=== PATIENT | female | born 1945 | race Caucasian/White ===

== ENCOUNTER 2017-02-19 01:46 | Day surgery (SDCO) | payer MEDICARE ==
[~2017-02-19 01:46] MED LIST: BENTYL20 MG PO; CARAFATE1 GM PO; COZAAR 100MG T100 MG PO; CRESTOR5 MG PO; DILTIAZEM 24HR240 M1 PO; LO-DOSE ASPIRIN81 MG PO; PREVACID30 MG PO; PROZAC40 MG PO; WELLBUTRIN SR150 MG PO
[2017-02-19 02:01] LABS: BASOPHIL 0.2 % (0-2); EOSINOPHIL 1.5 % (0-7); HCT 36.6 % (37.0-47.0); HGB 12.5 g/dl (12.5-16.0); LYMPHOCYTE 31.6 % (15-48); MCH 28.1 pg (25.0-31.0); MCHC 34.2 g/dL (32.0-36.0); MCV 82.2 fL (78.0-100.0); MONOCYTE 8.8 % (0-12); MPV 8.8 fL (6.0-9.5); NEUTROPHIL 57.9 % (41-80); PLT 373 K/uL (150-400); RBC 4.45 M/uL (4.20-5.40); RDW 14.2 % (11.5-14.0); WBC 8.4 K/uL (4.0-10.5)
[2017-02-19 02:11] LABS: INR 0.94 (0.9-1.2); PROTHROMBIN TIME 12.2 SECONDS (11.7-14.0); PTT 26.7 SECONDS (23.2-31.4)
[2017-02-19 02:21] LABS: CKMB 2.54 ng/mL (0.97-4.94); MYOGLOBIN 42 ng/mL (26-65); TROPONIN T < 0.010 ng/mL
[2017-02-19 02:22] LABS: ALBUMIN 4.3 g/dL (3.4-4.8); BILIRUBIN - TOTAL 0.2 mg/dL (0.1-1.0); CREATININE 1.1 mg/dL (0.5-1.0); GLOBULIN (CALCULATION) 3.5 g/dL (2.2-4.2); MAGNESIUM 1.76 mg/dL (1.40-2.10); POTASSIUM 3.7 mmol/L (3.5-5.1); TOTAL PROTEIN 7.8 g/dL (6.4-8.3)
[2017-02-19 02:23] LABS: PRO-BNP 270 pg/mL (0-125)
[2017-02-19 08:44] LABS: CKMB 2.44 ng/mL (0.97-4.94); TROPONIN T < 0.010 ng/mL
[2017-02-19] MEDS ORDERED: PRILOSEC20 MG PO (14:32)
[2017-02-19] MEDS ORDERED: HCTZ25 MG PO (14:34)
[2017-02-19] MEDS ORDERED: FLEXERIL10 MG PO (14:34)
[2017-02-19] MEDS ORDERED: NORCO 5-325 TA1 EACH PO (14:34)
[2017-02-19] MEDS ORDERED: HYDRALAZINE25 MG PO (14:34)
[2017-02-19] MEDS ORDERED: WELCHOL625 MG PO (14:35)
[2017-02-19] MEDS ORDERED: PROZAC40 MG PO (14:35)
== END 2017-02-19 14:00 | disposition home or self-care (01) ==
LOC: FER 01:46 → FICU 05:50
PROVIDERS: Emergency Medicine; Hospitalist; ADMIT Internal Medicine
DX: R07.89 Other chest pain (principal); I12.0 Hypertensive chronic kidney disease with stage 5 chronic kidney disease or end stage renal disease; N18.6 End stage renal disease; K21.9 Gastro-esophageal reflux disease without esophagitis; G47.33 Obstructive sleep apnea (adult) (pediatric); M19.90 Unspecified osteoarthritis, unspecified site; F41.9 Anxiety disorder, unspecified; F32.9 Major depressive disorder, single episode, unspecified; E78.5 Hyperlipidemia, unspecified; G89.29 Other chronic pain; Z90.710 Acquired absence of both cervix and uterus; Z90.49 Acquired absence of other specified parts of digestive tract; Z96.652 Presence of left artificial knee joint; Z98.49 Cataract extraction status, unspecified eye; Z82.49 Family history of ischemic heart disease and other diseases of the circulatory system; Z80.9 Family history of malignant neoplasm, unspecified; Z79.899 Other long term (current) drug therapy
CPT/HCPCS: 36415; 71010; 71275; 80053; 80061; 82550; 82553; 83735; 83874; 83880; 84484; 85025; 85379; 85610; 85730; 93005; C9113; G0378; J2270; Q9967

== ENCOUNTER 2021-05-31 09:03 | Emergency (ER) | payer MEDICARE ==
[~2021-05-31 09:03] MED LIST changes: +ASPIRIN EC81 MG PO; +CIPRO500 MG PO; +CLARITIN10 MG PO; +COLESTID 1GM TAB1 GM PO; +CRANBERRY200 MG PO; +EFFEXOR-XR 75 M75 MG PO; +ESTRACE42.5 GM VG; +ESTRADIOL42.5 GM VG; +FLEXERIL10 MG PO; +HCTZ25 MG PO; +HYDRALAZINE25 MG PO; +ISOSORBIDE MONO60 MG PO; +LOVAZA1 GM PO; +NAPROXEN500 MG PO; +NITROFURANTOIN100 M1 PO; +NORCO 5-325 TA1 EACH PO; +NORVASC5 MG PO; +PRILOSEC20 MG PO; +PROBIOTIC1 EAC1 PO; +PROCTOSOL-HC28.35 GM VG; +WELCHOL625 MG PO; +XARELTO10 MG PO
[2021-05-31] MEDS ORDERED: ULTRAM50 MG PO (11:15)
[2021-05-31] MEDS ORDERED: MEDROL 4MG DOSEP4 MG PO (11:15)
[2021-07-10] MEDS ORDERED: AMLODIPINE BESY10 MG PO (09:08)
[2021-07-10] MEDS ORDERED: PRAVASTATIN SOD40 MG PO (09:10)
[2021-07-10] MEDS ORDERED: LORAZEPAM 0.5M0.5 MG PO (09:11)
[2021-07-10] MEDS ORDERED: CO Q-10100 MG PO (09:14)
== END 2021-05-31 11:31 | disposition home or self-care (01) ==
LOC: FER 09:03
DX: M51.36 Other intervertebral disc degeneration, lumbar region (principal); M47.816 Spondylosis without myelopathy or radiculopathy, lumbar region; I10 Essential (primary) hypertension; K21.9 Gastro-esophageal reflux disease without esophagitis; Z79.82 Long term (current) use of aspirin; Z79.899 Other long term (current) drug therapy
CPT/HCPCS: 72131